=== PATIENT | female | born 1980 | race Caucasian/White ===

== ENCOUNTER 2018-08-24 08:10 | Emergency (ER) | payer BC, OTHER ==
[~2018-08-24] VITALS: Ht 152.4 cm; Wt 63.6 kg
[~2018-08-24 08:10] MED LIST: CIPR500T4 PO; NITR-58 PO; PHEN-538 PO; POLY10DR19 BOTH EYES
[2018-08-24 08:13] VITALS: Ht 152.4 cm; Wt 63.6 kg
[2018-08-24] MEDS ORDERED: NITR-58 PO (10:03)
--- NOTE | 2018-08-24 10:30 | ERD ---
ER Documentation Chief Complaint Chief Complaint vag bleed this morning, 7 weeks HPI 38 yr old female complaining of vaginal spotting x1 day. G 11 P6 84. Patient does not call her last menstrual period. She is being seen at [facility]. Patient denies any clotting and only light spotting. Denies medical problems. NKDA. Surgical history denies. Social history denies ROS All systems reviewed and are negative except as per history of present illness. Medications Home Meds Active Scripts Nitrofurantoin Monohyd Macrocr* (Macrobid*) 100 Mg Capsr, 100 MG PO BID for 14 Days, CAP Prov:JONI MEJÍA PA-C 08/24/18 Polymyxin B Sulfate-TMP* (Polymyxin B-TMP Eye Drops*) 10 Ml Drops, 1 DROP BOTH EYES QID for 7 Days, EA Prov:JOJO AVILA RADIOLOGY RN 10/03/15 Phenazopyridine Hcl* (Pyridium*) 200 Mg Tab, 200 MG PO TID PRN for URINARY PAIN, #6 TAB Prov:JOJO AVILA RADIOLOGY RN 10/03/15 Nitrofurantoin Monohyd Macrocr* (Macrobid*) 100 Mg Capsr, 100 MG PO BID for 7 Days, CAP Prov:JOJO AVILA RADIOLOGY RN 10/03/15 Ciprofloxacin Hcl* (Ciprofloxacin Hcl*) 500 Mg Tablet, 500 MG PO BID for 7 Days, TAB Prov:TIA HERRMANN 10/13/14 Allergies Allergies: Coded Allergies: No Known Drug Allergies (Verified Allergy, Unknown, 10/13/14) PMhx/Soc History of Surgery: No Anesthesia Reaction: No Hx Neurological Disorder: No Hx Respiratory Disorders: No Hx Cardiac Disorders: No Hx Psychiatric Problems: No Hx Miscellaneous Medical Probl: No Hx Alcohol Use: No Hx Substance Use: No Hx Tobacco Use: No FmHx Family History: No diabetes, No coronary disease, No other Physical Exam Vitals Vital Signs Date Temp Pulse Resp B/P (MAP) Pulse Ox O2 O2 Flow FiO2 Time Delivery Rate 08/24/18 98.6 73 18 116/60 100 08:13 (78) Physical Exam GENERAL: The patient is well-appearing, well-nourished, in no acute distress CHEST: Clear to auscultation bilaterally. There are no rales, wheezes or rhonchi. HEART: Regular rate and rhythm. No murmurs, clicks, rubs or gallops. No S3 or S4. ABDOMEN:Soft, nontender and nondistended. Good bowel sounds. No rebound or guarding. No gross peritonitis. No gross organomegaly or masses. Result Diagram: 08/24/18905 Results 24 hrs Laboratory Tests Test 08/24/18 09:06 08/24/18 09:07 White Blood Count 7.4 10^3/ul Red Blood Count 4.56 10^6/ul Hemoglobin 13.9 g/dl Hematocrit 41.2 % Mean Corpuscular Volume 90.4 fl Mean Corpuscular Hemoglobin 30.5 pg Mean Corpuscular Hemoglobin Concent 33.7 g/dl Red Cell Distribution Width 12.4 % Platelet Count 255 10^3/UL Mean Platelet Volume 9.6 fl Immature Granulocytes % 0.300 % Neutrophils % 72.1 % Lymphocytes % 19.7 % Monocytes % 6.4 % Eosinophils % 1.2 % Basophils % 0.3 % Nucleated Red Blood Cells % 0.0 /100WBC Immature Granulocytes # 0.020 10^3/ul Neutrophils # 5.3 10^3/ul Lymphocytes # 1.5 10^3/ul Monocytes # 0.5 10^3/ul Eosinophils # 0.1 10^3/ul Basophils # 0.0 10^3/ul Nucleated Red Blood Cells # 0.0 10^3/ul Beta HCG, Quantitative 19262.0 mIU/ml Urine Color YELLOW Urine Clarity CLOUDY Urine pH 8.0 Urine Specific Moro 1.023 Urine Ketones NEGATIVE mg/dL Urine Nitrite NEGATIVE mg/dL Urine Bilirubin NEGATIVE mg/dL Urine Urobilinogen NEGATIVE mg/dL Urine Leukocyte Esterase 1+ Lavonne/ul Urine Microscopic RBC 3 /HPF Urine Microscopic WBC 15 /HPF Urine Squamous Epithelial Cells FEW /HPF Urine Amorphous Crystals FEW /HPF Urine Mucus FEW /HPF Urine Hemoglobin 1+ mg/dL Urine Glucose NEGATIVE mg/dL Urine Total Protein NEGATIVE mg/dl Procedures/MDM DIAGNOSTIC IMAGING REPORT Patient: RAJI IVERSON : 1980 Age: 38 Sex: F MR #: [id number] DOS: 08/24/18 0839 Ordering MD: BELTRAN MEJÍA PA-C Location: [facility] Room/Bed: PROCEDURE: ULTRASOUND OBSTETRICAL CLINICAL INDICATION: 38-year-old female with vaginal bleeding. TECHNIQUE: Multiple sonographic images of the pelvis were obtained. The images were reviewed on a PACS workstation. COMPARISON: None. FINDINGS: The uterus is visualized and measures 8.7 x 7.2 x 7.8 cm. There is a single intrauterine gestation. The mean sac diameter is 0.17 cm. There is a pole present with a crown-rump length of 0.25 cm. This yields an estimated gestational age of 6 weeks and 4 days. There is no evidence for cardiac activity. There is no evidence for free fluid. The right ovary has a normal echotexture and measures 2.8 x 1.9 x 2.0 cm. There is a right ovarian cyst measuring 1.4 x 1.4 x 1.1 cm. There is flow within the right ovary. The left ovary was not visualized. No adnexal masses are noted. IMPRESSION: 1. Single intrauterine gestation of approximately 6 weeks 4 days without cardiac activity suspicious for early failed . Clinical correlation and follow-up ultrasound in 1-2 weeks is suggested. 2. Right ovarian follicular cyst. 3. The left ovary was not visualized. MDM: 38-year-old female presenting with vaginal bleeding. I have low suspicion for ectopic . Patient does not have cardiac activity noted on ultrasound the patient is high risk for failed and miscarriage. Patient is Rh+ and does not require RhoGam. Patient hemoglobin is stable. Patient does have findings consistent with urinary tract infection however low suspicion for pyelonephritis. Patient is discharged with strict ER precautions and told to follow-up with primary care within 1 to 2 days for close evaluation. Patient is told if symptoms change or worsen to return immediately to the ER. All questions answered at discharge Departure Diagnosis: Primary Impression: UTI (urinary tract infection) Additional Impression: Miscarriage Condition: Stable Patient Instructions: Understanding Urinary Tract Infections (UTIs), Miscarriage (Incomplete) Referrals: [place] [id number] [facility] [address] [place] [address]USLEME [address] [address] [place] [id number] [place] [address] [address] WELCH, [facility] [address], [address], [place] [address] [facility] [address] [facility] [place] [address] [facility] [address] [place] [address] [facility], [facility] [id number] - [address], [place] [address] [address]ANDER, [place] [address] [facility]. [address], [place] [address] [address] DAVISON [facility] [address] [place] [address] Additional Instructions: FOLLOW UP WITH YOUR PRIMARY CARE PHYSICIAN TOMORROW.Return to this facility if you are not improving as expected. JNOI MEJÍA PA-C August 24, 2018 10:30
[2018-08-24 10:44] VITALS: BP 109/68; PULSE 83; RESP 16
== END 2018-08-24 10:44 | disposition home or self-care (01) ==
LOC: FTE 08:10
DX: O23.41 Unspecified infection of urinary tract in pregnancy, first trimester (principal); O03.9 Complete or unspecified spontaneous abortion without complication
CPT/HCPCS: 36415; 76801; 81001; 84702; 85025; 86900; 86901; Z7502